=== PATIENT | male | born 1970 | race Two or more races ===

== ENCOUNTER 2020-04-25 19:11 | Inpatient (IN) | payer MEDICAID, OTHER ==
[~2020-04-25] VITALS: Ht 172.7 cm; Wt 61.7 kg
--- NOTE | 2020-04-25 19:15 | NUR ---
SUKUMAR GOMEZ AT BS FOR EVAL.
--- NOTE | 2020-04-25 19:53 | NUR ---
[id number], from a hotel, c/o weakness x 2 weeks, BS 137. PT AAOX4, VSS. RR EVEN & UNLABORED. DENIES CP, SOB, DIZZINESS, N/V/D AT THIS TIME. WILL CONT TO MONITOR.
[2020-04-25] MEDS ORDERED: IV NS 0.9% 1,000 ML BAG IV ONE (20:00)
[2020-04-25 20:07] LABS: BASOPHILS % (AUTO) 0.4 % (0.0-2.0); EOSINOPHILS % (AUTO) 0.4 % (0.0-6.0); HEMATOCRIT 36 % (39-51); HEMOGLOBIN 13.2 g/dL (13.5-17.5); LYMPHOCYTES % (AUTO) 8.9 % (20.0-44.0); MEAN CORPUSCULAR HGB CONC 36 g/dl (31.0-36.0); MEAN CORPUSCULAR VOLUME 120 fL (80-96); MONOCYTES # (AUTO) 0.7 /CMM (0.1-1.30); MONOCYTES % (AUTO) 5.8 % (2.0-12.0); NEUTROPHILS # (AUTO) 9.6 /CMM (1.8-8.9); NEUTROPHILS % (AUTO) 84.5 % (43.0-81.0); PLATELET COUNT (AUTO) 456 /CMM (150-450); RED BLOOD CELL COUNT(AUTO) 3.03 MIL/uL (4.5-6.0); WHITE BLOOD COUNT (AUTO) 11.3 K/uL (4.3-11.0)
[2020-04-25 20:31] LABS: BAND % (MANUAL) 5 % (0.0-5.0); EOSINOPHILS % (MANUAL) 1 % (0-4); LYMPHOCYTES % (MANUAL) 10 % (16-48); MONOCYTES % (MANUAL) 7 % (0-11.0); NEUTROPHILS % (MANUAL) 77 (42-76)
[2020-04-25] MEDS ORDERED: IV NS 0.9% 250 ML IV ONE (20:45)
[2020-04-25 21:29] LABS: ALANINE AMINOTRANSFERASE 68 U/L (12-78); ALBUMIN 2.6 g/dL (3.4-5.0); ALKALINE PHOSPHATASE 125 U/L (46-116); ASPARTATE AMINOTRANSFERASE 54 U/L (15-37); BILIRUBIN,DIRECT 1.3 mg/dL (0.0-0.2); BILIRUBIN,TOTAL 2.4 mg/dL (0.2-1.0); CALCIUM, SERUM 7.2 mg/dL (8.5-10.1); CARBON DIOXIDE 39 mmol/L (21-32); CHLORIDE 81 mmol/L (98-107); CREATININE 1.7 mg/dL (0.6-1.3); GLUCOSE 112 mg/dL (74-106); SODIUM SERUM 127 mmol/L (136-145); TOTAL PROTEIN, SERUM 6.4 g/dL (6.4-8.2); UREA NITROGEN, BLOOD 30 mg/dL (7-18)
[2020-04-25 21:30] LABS: POTASSIUM 1.4 mmol/L (3.5-5.1)
[2020-04-25] MEDS ORDERED: IOHEXOL-350 100 ML VIAL IV ONE (21:34)
[2020-04-25] MEDS ORDERED: Magnesium 1 GM/2 ML VIAL IV ONE (22:00)
[2020-04-25] MEDS ORDERED: POTASSIUM CHLORIDE 20 MEQ TAB.PRT.SR PO ONE ×2 (22:00→22:05)
[2020-04-25] MEDS ORDERED: IV PREMIX NS + 40 MEQ KCL 1,000 L IV PRN (22:00)
[2020-04-25] MEDS ORDERED: Magnesium 1GM/D5W 100ML PREMIX 200 ML IV ONE (22:04)
--- NOTE | 2020-04-25 22:21 | NUR ---
PT VSS. RR EVEN & UNLABORED. DENIES CP, SOB, DIZZINESS, N/V/D AT THIS TIME. ON TELE, SR. WILL CONT TO MONITOR.
[2020-04-25] MEDS ORDERED: POTASSIUM CL. PREMIX PERIPHER. 200 ML ONE (22:24)
[2020-04-25] MEDS ORDERED: POTASSIUM CHLORIDE 10 MEQ/50 ML PREMIXED IVPB FOR PERIPHERAL LINE IV ONE (22:30)
[2020-04-25] MEDS: Magnesium 1GM/D5W 100ML PREMIX 100 ML IV SCH ×2 (22:43→23:52)
--- NOTE | 2020-04-25 22:52 | NUR ---
MEDICATED PER PA'S ORDER, PT KRYSTA WELL. WILL CONT TO MONITOR.
--- NOTE | 2020-04-25 23:42 | NUR ---
BAG 2 OF 4 OF POTASSIUM CHLORIDE IS ADMINISTERED .WILL CONT TO MONITOR , IV LINE INTACT AND PATENT W. NO S/S OF INFILTRATION. NO C/O PAIN OR DISCOMFORT ON THE IV SITE,
[2020-04-26] MEDS ORDERED: MAG HYDROX/AL HYDROX/SIMETH 30 ML UDC PO PRN
[2020-04-26] MEDS ORDERED: ACETAMINOPHEN 325 MG TABLET PO PRN
[2020-04-26] MEDS ORDERED: ONDANSETRON HCL/PF 4 MG/2 ML VIAL IVP PRN
[2020-04-26] MEDS ORDERED: ZOLPIDEM TARTRATE 5 MG TABLET PO PRN
[2020-04-26] MEDS ORDERED: Z GUARD REMEDY 2 OZ OINT TP PRN
[2020-04-26] MEDS ORDERED: IV NS 0.9% 1,000 ML IV PRN
[2020-04-26] MEDS ORDERED: MAGNESIUM HYDROXIDE 30 ML UDC PO PRN
[2020-04-26] MEDS ORDERED: HYDROCODONE/APAP 5/325MG TABLET PO PRN
--- NOTE | 2020-04-26 00:05 | NUR ---
REPORT GIVEN TO ZEKE GROVER
--- NOTE | 2020-04-26 00:30 | NUR ---
pt was transferred to [facility] under ACLS
[2020-04-26 01:00] VITALS: BP 117/80
[2020-04-26 04:00] VITALS: BP 106/73
--- NOTE | 2020-04-26 05:47 | NUR ---
RN notes Admitted a 49 yr old male from ER with complaints of 2 weeks weakness, confusion, lack of appetite and muscles feeling like atrophied. Diagnosis of severe hypokalemia 1.4 And . Infused 4 bags, and low magnesium level of 1.6. Infused 2 bags. Both were started at ER and continued in [place]. Patient is alert and oriented, verbally able to communicate needs. Unable to ambulate due to severe weakness. No complaint of pain or discomfort. Kept clean and dry. Vital signs WNL. Kept clean and dry. Will endorse to next shift for continuity of care.
[2020-04-26 06:33] LABS: CALCIUM, SERUM 7.4 mg/dL (8.5-10.1); CREATININE 1.6 mg/dL (0.6-1.3); MAGNESIUM 2.7 mg/dL (1.8-2.4); PHOSPHORUS 1.5 mg/dL (2.5-4.9)
[2020-04-26 06:45] LABS: POTASSIUM 1.6 mmol/L (3.5-5.1)
--- NOTE | 2020-04-26 06:45 | NUR ---
0645 CRITICAL K+ 1.[address] BYRNES VIA PHONE. AWAITING CALL BACK.
[2020-04-26 06:47] LABS: THYROID STIMULATING HORMONE 2.747 uIU/mL (0.358-3.74)
--- NOTE | 2020-04-26 07:00 | NUR ---
PT A/OX4. ON RA W NO SIGNS OF DISTRESS. DENIES PAIN OR SOB. SKIN WARM FLUSHED. SR 80S ON TELE. USES URINAL. SKIN INTACT. R AC AND L AC FLUSHED, PATENT, DRESSING INTACT. LOW K 1.6. MD AWARE. AWAITING ORDERS. MONITORING LABS AND ELECTROLYTES AND TELE. WILL REPORT NEEDED. ALL HOSPITAL POLICY SAFETY PRECAUTIONS IMPLEMENTED.
[2020-04-26 08:00] VITALS: BP 126/83
[2020-04-26 08:10] LABS: BASOPHILS % (AUTO) 0.3 % (0.0-2.0); EOSINOPHILS % (AUTO) 0.7 % (0.0-6.0); HEMATOCRIT 33 % (39-51); HEMOGLOBIN 11.8 g/dL (13.5-17.5); LYMPHOCYTES # (AUTO) 1.2 /CMM (0.8-4.8); LYMPHOCYTES % (AUTO) 11.7 % (20.0-44.0); MEAN CORPUSCULAR HGB CONC 36 g/dl (31.0-36.0); MEAN CORPUSCULAR VOLUME 122 fL (80-96); MONOCYTES # (AUTO) 0.8 /CMM (0.1-1.30); MONOCYTES % (AUTO) 7.6 % (2.0-12.0); NEUTROPHILS # (AUTO) 7.9 /CMM (1.8-8.9); NEUTROPHILS % (AUTO) 79.7 % (43.0-81.0); PLATELET COUNT (AUTO) 423 /CMM (150-450); WHITE BLOOD COUNT (AUTO) 9.9 K/uL (4.3-11.0)
[2020-04-26] MEDS: POTASSIUM CL. PREMIX PERIPHER. 50 ML IV SCH ×4 (10:19→13:36)
[2020-04-26] MEDS: Potassium Chloride 40 MEQ in IV NS 0.9% 1,000 ML IV PRN (11:27)
[2020-04-26 11:51] LABS: ALBUMIN 2.3 g/dL (3.4-5.0); BILIRUBIN,TOTAL 3.1 mg/dL (0.2-1.0); CALCIUM, SERUM 7.4 mg/dL (8.5-10.1); CREATININE 1.2 mg/dL (0.6-1.3); MAGNESIUM 2.6 mg/dL (1.8-2.4); PHOSPHORUS 1.3 mg/dL (2.5-4.9); TOTAL PROTEIN, SERUM 5.9 g/dL (6.4-8.2)
[2020-04-26 12:00] VITALS: BP 122/87
[2020-04-26] MEDS ORDERED: Thiamine 100 MG in IV D5W 50 ML IV ONE (12:00)
[2020-04-26 12:28] LABS: POTASSIUM 1.7 mmol/L (3.5-5.1)
--- NOTE | 2020-04-26 12:29 | NUR ---
CRITICAL LAB VALUE K 1.7 RECEIVED FROM LAB. NOTIFIED. AWAITING ORDERS.
[2020-04-26] MEDS ORDERED: K PHOS NEUTRAL 250 MG TABLET PO ONE (14:00)
[2020-04-26 16:00] VITALS: BP 117/81
--- NOTE | 2020-04-26 18:52 | NUR ---
PT A/OX4. ON RA W NO SIGNS OF DISTRESS. DENIES PAIN OR SOB. SKIN WARM FLUSHED. SR 80S ON TELE. USES URINAL. SKIN INTACT. R AC AND L AC FLUSHED, PATENT, DRESSING INTACT. MONITORED K LEVELS THROUGHOUT DAY. AWARE. MONITORED LABS AND ELECTROLYTES AND TELE. REPORTED NEEDED. ALL HOSPITAL POLICY SAFETY PRECAUTIONS IMPLEMENTED. PT TOLERATED ALL ORDERS. ALL ORDERS IMPLEMENTED.
[2020-04-26 20:00] VITALS: BP 112/60
--- NOTE | 2020-04-26 20:00 | NUR ---
telemetry technician note pt in bed. a/o x4. Breathing even and unlabored with no sob or acute distress noted. Denies any pain or discomfort. RIght and left ac iv site patent and intact. IV fluids infusing well. All needs rendered. Call light within reach, Srx2 up. Bed in lowest position. Will continue to monitor.
[2020-04-27] VITALS: BP 113/76
[2020-04-27 04:00] VITALS: BP 112/82
[2020-04-27 06:03] LABS: BASOPHILS % (AUTO) 0.3 % (0.0-2.0); EOSINOPHILS % (AUTO) 0.8 % (0.0-6.0); HEMATOCRIT 32 % (39-51); HEMOGLOBIN 11.7 g/dL (13.5-17.5); LYMPHOCYTES # (AUTO) 1.2 /CMM (0.8-4.8); MEAN CORPUSCULAR HGB CONC 37 g/dl (31.0-36.0); MEAN CORPUSCULAR VOLUME 121 fL (80-96); MONOCYTES # (AUTO) 0.4 /CMM (0.1-1.30); NEUTROPHILS # (AUTO) 6.6 /CMM (1.8-8.9); NEUTROPHILS % (AUTO) 79.9 % (43.0-81.0); PLATELET COUNT (AUTO) 412 /CMM (150-450); RED BLOOD CELL COUNT(AUTO) 2.61 MIL/uL (4.5-6.0); WHITE BLOOD COUNT (AUTO) 8.2 K/uL (4.3-11.0)
[2020-04-27 06:09] LABS: ALBUMIN 2.2 g/dL (3.4-5.0); BILIRUBIN,TOTAL 3.5 mg/dL (0.2-1.0); CALCIUM, SERUM 7.3 mg/dL (8.5-10.1); MAGNESIUM 2.2 mg/dL (1.8-2.4); PHOSPHORUS 2.2 mg/dL (2.5-4.9); TOTAL PROTEIN, SERUM 5.8 g/dL (6.4-8.2)
[2020-04-27 06:15] LABS: POTASSIUM 1.9 mmol/L (3.5-5.1)
[2020-04-27 06:22] LABS: EOSINOPHILS % (MANUAL) 2 % (0-4); LYMPHOCYTES % (MANUAL) 15 % (16-48); MONOCYTES % (MANUAL) 6 % (0-11.0); NEUTROPHILS % (MANUAL) 77 (42-76)
--- NOTE | 2020-04-27 06:30 | NUR ---
0630 CRITICAL K+ 1.[address] BYRNES WITH ORDER TO GIVE 40MEQ KCL PO AND 40MEQ KCL IVPB. ORDER NOTED AND CARRIED OUT.
--- NOTE | 2020-04-27 06:43 | NUR ---
harness builder closing note pt in bed. awake a/o x4. Breathing even and unlabored with no sob or acute distress noted. Denies any pain or discomfort. Left and right AC #18 patent and intact. IV fluids infusing well. All needs rendered. Kept clean and dry. Call light within reach. Srx2 up. Will endorse to am nurse for continuity of care.
[2020-04-27] MEDS ORDERED: POTASSIUM CHLORIDE 10 MEQ/50 ML PREMIXED IVPB FOR PERIPHERAL LINE IV ONE (07:00)
[2020-04-27] MEDS ORDERED: POTASSIUM CHLORIDE 20 MEQ TAB.PRT.SR PO ONE (07:00)
--- NOTE | 2020-04-27 07:30 | NUR ---
RN OPENING NOTES RECEIVED PATIENT IN BED, AWAKE, A/OX4, ON ROOM AIR, TOLERATING WELL, NO SOB, DENIES PAIN OR DISCOMFORT AT THIS TIME, NSR ON TELEMONITOR WITH 77-78 HR, SKIN IS INTACT, IV LINER ON L AC AND R AC NOTED, BOTH PATENT, INTACT AND FLUSHED WELL, NO S/SX OF INFILTRATION NOTED. SAFETY MEASURES IN PLACE, BED IS LOCKED, IN LOWEST POSITION, HOB ELEVATED, CALL LIGHT IN REACH, WILL CONT TO MONITOR
[2020-04-27 08:00] VITALS: BP 116/79
--- NOTE | 2020-04-27 08:50 | NUR ---
REQUESTING NICOTINE PATCH, WILL CONTACT
[2020-04-27] MEDS: Potassium Chloride 40 MEQ in IV NS 0.9% 1,000 ML IV PRN ×2 (09:34→23:56)
[2020-04-27] MEDS: NICOTINE PATCH (14MG) 14 MG PATCH.TD24 TD SCH (09:54)
[2020-04-27] MEDS: THIAMINE HCL 100 MG TABLET PO SCH (09:54)
[2020-04-27] MEDS ORDERED: K PHOS NEUTRAL 250 MG TABLET PO ONE (11:00)
[2020-04-27 12:00] VITALS: BP 124/91
[2020-04-27] MEDS: POTASSIUM CL. PREMIX PERIPHER. 50 ML IV SCH ×4 (14:53→17:45)
[2020-04-27 16:00] VITALS: BP 125/83
--- NOTE | 2020-04-27 18:46 | NUR ---
RN CLOSING NOTED PATIENT REMAINS IN BED, TOLERATING IV FLUIDS WELL, DENIES PAIN OR DISCOMFORT, ALL MEDICATIONS GIVEN, COMFORT NEEDS ATTENDED, IV LINES PATENT, FLUSHED AND INTACT, SAFETY MEASURES IN PLACE, BED IS LOCKED IN LOWEST POSITION,CALL LIGHT IN REACH, WILL ENDORSE TO PM SHIFT RN FOR LENORE
--- NOTE | 2020-04-27 19:15 | NUR ---
RN OPENING NOTES RECEIVED PT IN BED. ASLEEP. PT ON ROOM AIR. PT ABLE TO MAKE NEEDS KNOWN. NO S/S OF RESP DISTRESS OR SHORTNESS OF BREATH. BREATHING IS EVEN AND UNLABORED AT THIS TIME. ON TELE MONITORING NSR-SINUS TACHY. CURRENTLY PT HAS HEART RATE OF 103. PT USES THE URINAL AT BEDSIDE. BELONGINGS ARE AT BEDSIDE. PT DENIES PAIN AT THIS TIME. BOTH IV SITES AC LINES LEAKING, WILL RE INSERT. BED IS LOCKED IN LOWEST POSITION. BED ALARM ON. ID BAND ON. SIDE RAILS UP X2. ID BAND ON. CALL LIGHT WITHIN REACH. WILL CONTINUE TO CLOSELY MONITOR.
[2020-04-27 20:00] VITALS: BP 131/82
--- NOTE | 2020-04-27 21:24 | NUR ---
NEW IV SITE PLACE. RIGHT FOREARM #22 GOOD BLOOD RETURN. PT IS STILL RECEIVING IVF. WILL CONTINUE TO MONITOR. OTHER SITES HAVE BEEN DISCONTINUED. NO S/S OF BLEEDING NOTED.
[2020-04-28] VITALS: BP 103/66
--- NOTE | 2020-04-28 01:24 | NUR ---
PT IS CURRENTLY RESTING AT THIS TIME UPON ROUNDS, NEEDS ATTENDED.
[2020-04-28 04:00] VITALS: BP 118/74
--- NOTE | 2020-04-28 04:40 | NUR ---
PT CLEANED, LINENS GOWN CHANGED. TOLERATED WELL.
[2020-04-28 06:36] LABS: BASOPHILS # (AUTO) 0.1 /CMM (0.0-0.2); BASOPHILS % (AUTO) 0.6 % (0.0-2.0); EOSINOPHILS % (AUTO) 1.6 % (0.0-6.0); HEMATOCRIT 29 % (39-51); HEMOGLOBIN 10.5 g/dL (13.5-17.5); LYMPHOCYTES # (AUTO) 1.5 /CMM (0.8-4.8); MEAN CORPUSCULAR HGB CONC 36 g/dl (31.0-36.0); MEAN CORPUSCULAR VOLUME 123 fL (80-96); MONOCYTES # (AUTO) 0.6 /CMM (0.1-1.30); MONOCYTES % (AUTO) 6.3 % (2.0-12.0); NEUTROPHILS # (AUTO) 7.7 /CMM (1.8-8.9); NEUTROPHILS % (AUTO) 76.5 % (43.0-81.0); PLATELET COUNT (AUTO) 346 /CMM (150-450); RED BLOOD CELL COUNT(AUTO) 2.35 MIL/uL (4.5-6.0); WHITE BLOOD COUNT (AUTO) 10.1 K/uL (4.3-11.0)
--- NOTE | 2020-04-28 07:30 | NUR ---
RN OPENING NOTES PATIENT PRESENT AT BED, A/OX4, AWAKE, WATCHING TV, ON ROOM AIR, TOLERATING WELL, NO S/SX OF DISTRESS NOTED, NO SOB REPORTED, SPO2 IS 97% AT THIS TIME, TELE MONITOR IS ST 108 AT THIS MOMENT, IV LINE ON R FA RUNNING IVF @ 125/HR, TOLERATING WELL, NO S/SX OF INFILTRATION NOTED, NO REPORTED PAIN, SAFETY MEASURES IMPLEMENTED, BED IS LOCKED IN LOWEST POSITION, CALL LIGHT IN REACH, WILL CONT TO MONITOR
[2020-04-28 07:35] LABS: EOSINOPHILS % (MANUAL) 1 % (0-4); LYMPHOCYTES % (MANUAL) 18 % (16-48); MONOCYTES % (MANUAL) 4 % (0-11.0); NEUTROPHILS % (MANUAL) 77 (42-76)
[2020-04-28 07:47] LABS: CALCIUM, SERUM 7.8 mg/dL (8.5-10.1); CREATININE 1.1 mg/dL (0.6-1.3); MAGNESIUM 1.7 mg/dL (1.8-2.4); PHOSPHORUS 2.2 mg/dL (2.5-4.9)
[2020-04-28 07:54] LABS: POTASSIUM 2.7 mmol/L (3.5-5.1)
[2020-04-28 08:00] VITALS: BP 123/88
[2020-04-28] MEDS: Magnesium 1GM/D5W 100ML PREMIX 100 ML IV SCH ×2 (08:19→09:22)
[2020-04-28] MEDS: THIAMINE HCL 100 MG TABLET PO SCH (08:19)
[2020-04-28] MEDS: NICOTINE PATCH (14MG) 14 MG PATCH.TD24 TD SCH (08:19)
[2020-04-28] MEDS: POTASSIUM CHLORIDE 20 MEQ TAB.PRT.SR PO SCH ×2 (08:19→09:59)
[2020-04-28 09:11] LABS: PTH, INTACT 129 pg/mL (15-65)
[2020-04-28] MEDS: POTASSIUM PHOSPHATE MM 5 MMOL in IV NS 0.9% 100 ML IV SCH ×2 (09:59→11:58)
[2020-04-28 12:00] VITALS: BP 123/84
--- NOTE | 2020-04-28 15:12 | NUR ---
states he has pain in his feet, 5/10, will administer PRN pain medication
[2020-04-28 16:00] VITALS: BP 128/85
--- NOTE | 2020-04-28 19:05 | NUR ---
RN CLOSING NOTED PATIENT REMAINS IN BED, TOLERATING IV FLUIDS WELL, DENIES PAIN OR DISCOMFORT, ALL MEDICATIONS GIVEN, COMFORT NEEDS ATTENDED, IV LINE PATENT WORKS WELL, FLUSHED AND INTACT, SAFETY MEASURES IN PLACE, BED IS LOCKED IN LOWEST POSITION,CALL LIGHT IN REACH, WILL ENDORSE TO PM SHIFT RN FOR LENORE
[2020-04-28 20:00] VITALS: BP 133/83
--- NOTE | 2020-04-28 20:00 | NUR ---
ms rn opening note received pt in bed. a/o x4. breathing even and unlabored with no sob or acute distress noted. Denies any pain or discomfort. rfa Iv site patent and intact. iv fluids infusing well. All needs rendered. bed in lowest position. Call light within reach. Will continue to monitor.
[2020-04-28] MEDS: Potassium Chloride 40 MEQ in IV NS 0.9% 1,000 ML IV PRN (22:40)
[2020-04-29] VITALS: BP 111/75
[2020-04-29 04:00] VITALS: BP 129/87
[2020-04-29 06:07] LABS: BASOPHILS # (AUTO) 0.1 /CMM (0.0-0.2); BASOPHILS % (AUTO) 0.6 % (0.0-2.0); HEMATOCRIT 32 % (39-51); HEMOGLOBIN 11.1 g/dL (13.5-17.5); LYMPHOCYTES # (AUTO) 1.3 /CMM (0.8-4.8); LYMPHOCYTES % (AUTO) 11.2 % (20.0-44.0); MEAN CORPUSCULAR HGB CONC 35 g/dl (31.0-36.0); MEAN CORPUSCULAR VOLUME 127 fL (80-96); MONOCYTES # (AUTO) 0.7 /CMM (0.1-1.30); MONOCYTES % (AUTO) 6.2 % (2.0-12.0); PLATELET COUNT (AUTO) 375 /CMM (150-450); RED BLOOD CELL COUNT(AUTO) 2.53 MIL/uL (4.5-6.0); WHITE BLOOD COUNT (AUTO) 11.2 K/uL (4.3-11.0)
[2020-04-29 06:11] LABS: CREATININE 1.1 mg/dL (0.6-1.3); MAGNESIUM 1.7 mg/dL (1.8-2.4); PHOSPHORUS 2.7 mg/dL (2.5-4.9); POTASSIUM 3.9 mmol/L (3.5-5.1)
--- NOTE | 2020-04-29 07:30 | NUR ---
RN OPENING NOTES PATIENT SITTING AT BED, A/OX4, AWAKE, WATCHING TV, EATING, ORDERING FOOD FROM THE PHONE [employer], ON ROOM AIR, TOLERATING WELL, NO S/SX OF DISTRESS NOTED, NO SOB REPORTED, SPO2 IS 99% AT THIS MOMENT, REPORTS SEVERE WEAKNESS IN HIS LEGS , STATES HE IS UNABLE TO WALK DUE HIS WEAKNESS, MED SURG STATUS, IV LINE ON R FA RUNNING IVF @ 125/HR, TOLERATING WELL, NO S/SX OF INFILTRATION NOTED, SAFETY MEASURES IMPLEMENTED, BED IS LOCKED IN LOWEST POSITION, CALL LIGHT IN REACH, WILL CONT TO MONITOR
--- NOTE | 2020-04-29 07:48 | NUR ---
MS Rn closing note pt in bed. alert oriented x4. breathing even and unlabored with no sob or acute distress noted on RA. 02 sat 96%. Denies any pain and discomfort. IV site patent and intact. Iv fluids infusing well. Kept clean and dry. All needs rendered . Call light within reach. Bed in lowest position. Endorsed to Tiffany for continuity of care.
[2020-04-29 08:00] VITALS: BP 130/99
[2020-04-29] MEDS: Magnesium 1GM/D5W 100ML PREMIX 100 ML IV SCH ×2 (08:22→10:11)
[2020-04-29] MEDS: THIAMINE HCL 100 MG TABLET PO SCH (08:23)
[2020-04-29] MEDS: NICOTINE PATCH (14MG) 14 MG PATCH.TD24 TD SCH (08:23)
[2020-04-29 09:52] LABS: EOSINOPHILS % (MANUAL) 3 % (0-4); LYMPHOCYTES % (MANUAL) 12 % (16-48); MONOCYTES % (MANUAL) 5 % (0-11.0); NEUTROPHILS % (MANUAL) 80 (42-76)
[2020-04-29 16:00] VITALS: BP 149/95
--- NOTE | 2020-04-29 16:00 | NUR ---
VERBALIZED THAT NOT FEELING COMFORTABLE YO BE DISCHARGE HOME, WANT TO STAY ONE MORE DAY IN HOSPITAL, MD AND ENGRAVING OPERATOR MADE AWARE
[2020-04-29 20:00] VITALS: BP 122/75
[2020-04-29] MEDS: Potassium Chloride 40 MEQ in IV NS 0.9% 1,000 ML IV PRN (23:13)
[2020-04-30 04:00] VITALS: BP 133/84
--- NOTE | 2020-04-30 04:47 | NUR ---
RN notes, Patient in bed, watching TV with no distress noted. Breathing even and unlabored. On room air well tolerated. Alert and oriented. Verbally able to communicate needs. Unable to ambulate due to weakness in the lower extremities. Vital signs wnl. No complaint of pain or discomfort. Kept clean and dry. Needs attended. Will continue to monitor.
[2020-04-30 05:12] LABS: *SPE A/G RATIO 0.8 (0.7-1.7); *SPE ALBUMIN 2.5 g/dL (2.9-4.4); *SPE ALPHA-1-GLOBULIN 0.4 g/dL (0.0-0.4); *SPE ALPHA-2-GLOBULIN 0.8 g/dL (0.4-1.0); *SPE BETA GLOBULIN 1.2 g/dL (0.7-1.3); *SPE M-SPIKE Not Observed g/dL (Not Observed); *SPEGAMMA GLOBULIN 0.6 g/dL (0.4-1.8)
--- NOTE | 2020-04-30 07:30 | NUR ---
RN NOTES PATIENT RECEIVED IN BED SLEEPING, EASILY AWAKEN BY NAME. ALERT AND ORIENTED X 4. PATIENT ON ROOM AIR WITH NO SIGNS OF RESPIRATORY DISTRESS AT THIS TIME, WITH EVEN NON-LABORED BREATHING, AND NO SOB NOTED. SKIN WARM AND DRY TO TOUCH. IV ACCESS INTACT AND PATENT, CURRENTLY INFUSING POTASSIUM CHLORIDE AT 125ml/hr. PATIENT DENIES PAIN AND DISCOMFORT AT THIS TIME. SAFETY PRECAUTIONS IMPLEMENTED WITH THE BED IN THE LOWEST POSITION, BILATERAL SIDE RAILS UP, BED LOCKED, AND CALL LIGHT WITHIN EASY REACH. WILL CONTINUE TO MONITOR PATIENT.
[2020-04-30 08:00] VITALS: BP 136/95
[2020-04-30] MEDS: NICOTINE PATCH (14MG) 14 MG PATCH.TD24 TD SCH (08:29)
[2020-04-30] MEDS: THIAMINE HCL 100 MG TABLET PO SCH (08:29)
[2020-04-30] MEDS: Potassium Chloride 40 MEQ in IV NS 0.9% 1,000 ML IV PRN (08:29)
--- NOTE | 2020-04-30 15:00 | NUR ---
BANDER AND CELLOPHANER MACHINE NOTES PATIENT AWAKE ALERT AND ORIENTED X 4. PATIENT VITAL SIGNS WITHIN NORMAL LIMITS. PATIENT ON ROOM AIR WITH NO SIGNS OF RESPIRATORY DISTRESS AT THIS TIME, WITH EVEN NON-LABORED BREATHING, AND NO SOB NOTED. SKIN KEPT CLEAN, WARM AND DRY TO TOUCH. MEDICALLY CLEARED AND STABLE FOR DISCHARGE. REMOVED IV ACCESS, CATHETER TIP INTACT, AND APPLIED PRESSURE TO SITE. REMOVED ID BAND OFF OF PATIENT. PROVIDED FRONT WHEEL WALKER TO PATIENT PER PT REQUESTED. PATIENT DENIES PAIN AND DISCOMFORT AT THIS TIME. PROVIDED EDUCATION TO PATIENT. PATIENT ACCOUNTED FOR ALL BELONGINGS. PATIENT LEFT UNIT VIA WHEELCHAIR. PROVIDED VOUCHER TO PATIENT, LEFT HOSPITAL VIA TAXI.
--- NOTE | 2020-04-30 16:09 | NUR ---
11am: SW met with the patient at bedside regarding discharge plan. Patient is a 49 year-old male. Patient is alert and oriented x4. 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 Patient reported that he had been renting out an Air BNB and departed early from the one he was staying at as the patient was brought to [facility] ED. Patient reports that he will make plans to rent out an Air BNB or a Hotel room to make plans to return to [place]. Patient was calm and cooperative throughout this assessment. Patient made appropriate eye contact. SW remains available for all needs regarding this patient.
== END 2020-04-30 14:50 | disposition home or self-care (01) | DRG 422 ==
LOC: ER 19:14 → TELE1 04-26 → MEDSG1 04-28 13:11
PROVIDERS: ADMIT Student in an Organized Health Care Education/Training Program; ATTEND Nurse Practitioner Acute Care
DX: E87.6 Hypokalemia (principal); F12.90 Cannabis use, unspecified, uncomplicated; E44.0 Moderate protein-calorie malnutrition; E83.42 Hypomagnesemia; E87.1 Hypo-osmolality and hyponatremia; N17.0 Acute kidney failure with tubular necrosis; D72.829 Elevated white blood cell count, unspecified; D64.9 Anemia, unspecified; D47.3 Essential (hemorrhagic) thrombocythemia; E83.39 Other disorders of phosphorus metabolism; F10.10 Alcohol abuse, uncomplicated; Z72.0 Tobacco use; Z20.828 Contact with and (suspected) exposure to other viral communicable diseases; R74.01 Elevation of levels of liver transaminase levels; E86.1 Hypovolemia
CPT/HCPCS: 36415; 70450-TC; 71045-TC; 76770-TC; 80048-TC; 80053-TC; 80061-TC; 80076-TC; 82550-TC; 83735-TC; 83970; 84100-TC; 84155; 84165; 84443-TC; 84484-TC; 85025-TC; 85378-TC; 85730-TC; 87040-TC; 87081-TC; 87806; 97116-TC; 97530-TC; C9803; G0378; J3411; J3475; J3480; J3490; J7030; J7050; J7060; Q9967; U0003